=== PATIENT | male | born 1980 | race Two or more races ===

== ENCOUNTER 2020-03-06 08:02 | Emergency (ER) | payer SELFPAY ==
[~2020-03-06] VITALS: Ht 175.3 cm; Wt 61.2 kg
[2020-03-06 08:04] VITALS: Ht 175.3 cm; Wt 61.2 kg
[2020-03-06 09:14] VITALS: BP 147/106
== END 2020-03-06 09:14 | disposition other institution (70) ==
LOC: ED 08:02
DX: I16.0 Hypertensive urgency (principal)

== ENCOUNTER 2020-03-06 08:02 | Emergency (ER) | payer OTHER | END 2020-03-06 08:04 | disposition other institution (70) | LOC: ED 08:02 | DX: Z02.89 Encounter for other administrative examinations (principal) ==